=== PATIENT | female | born 1970 | race Caucasian/White ===

== ENCOUNTER 2019-01-10 10:28 | Emergency (ER) | payer OTHER ==
[2019-01-10 10:39] VITALS: BP 96/75; PULSE 85; RESP 18; TEMP 97.8
[2019-01-10] MEDS ORDERED: ONDANSETRON 4 MG/2 ML VIAL IVP STA (11:19)
[2019-01-10] MEDS ORDERED: SODIUM CHLORIDE 0.9% 1,000 ML IV ONE (11:19)
--- NOTE | 2019-01-10 11:48 | ED ---
Syncope HPI - General Chief Complaint: Syncope Stated Complaint: Syncope N/D Time Seen by Provider: 01/10/19 10:47 Source: patient, RN notes reviewed, old records reviewed Mode of arrival: ambulatory Limitations: no limitations - History of Present Illness Initial Comments: Patient is a 48-year-old female presents to return today with complaints of nausea. Patient reports that she had some x-rays x-rays yesterday for some 22st birthday. Patient states that she woke up today feeling nauseated and is concerned for having upper respiratory congestion. At this time Patient states he took his Zinc. She reports that caused her to have symptoms GI upset. Had an episode of vomiting and nausea as well as some diarrhea. Patient states that she was feeling dizzy and lightheaded after she had an episode of vomiting. She then passed out and hit her head on the floor. She had a brief loss of consciousness for 10 seconds. Patient states that she's had improvement of her symptoms upon arrival to the ER. She denies any nausea or abdomen pain. She states she has a mild headache. She denies any associated chest pain or shortness of breath. No significant past medical history. - Related Data Previous Rx's Medication Instructions Recorded Nitrofurantoin Monohyd/M-Cryst 100 mg PO Q12HR #14 cap 01/10/19 [Macrobid] Ondansetron Odt [Zofran Odt] 4 mg PO Q8HR PRN #12 tab 01/10/19 Allergies Allergy/AdvReac Type Severity Reaction Status Date / Time No Known Allergies Allergy Verified 01/10/19 10:56 Review of Systems ROS Statement: Those systems with pertinent positive or pertinent negative responses have been documented in the HPI. ROS Other: All systems not noted in ROS Statement are negative. Past Medical History Past Medical History: No Reported History History of Any Multi-Drug Resistant Organisms: None Reported Past Surgical History: Appendectomy, Cholecystectomy Past Psychological History: Anxiety Smoking Status: Never smoker Past Alcohol Use History: Occasional Past Drug Use History: None Reported General Exam - General Exam Comments Initial Comments: This is a 48-year-old female. Alert and oriented 3. No significant distress. Limitations: no limitations General appearance: alert, in no apparent distress Head exam: Present: atraumatic, normocephalic, normal inspection Eye exam: Present: normal appearance, PERRL, EOMI. Absent: scleral icterus, conjunctival injection, periorbital swelling ENT exam: Present: normal exam, mucous membranes moist Neck exam: Present: normal inspection. Absent: tenderness, meningismus, lymphadenopathy Respiratory exam: Present: normal lung sounds bilaterally. Absent: respiratory distress, wheezes, rales, rhonchi, stridor Cardiovascular Exam: Present: regular rate, normal rhythm, normal heart sounds. Absent: systolic murmur, diastolic murmur, rubs, gallop, clicks GI/Abdominal exam: Present: soft, tenderness (Suprapubic tenderness. Patient later relates that she thinks she has a urinary tract infection.), normal bowel sounds. Absent: distended, guarding, rebound, rigid Extremities exam: Present: normal inspection, full ROM, normal capillary refill. Absent: tenderness, pedal edema, joint swelling, calf tenderness Back exam: Present: normal inspection Course Vital Signs 01/10/19 10:35 Temperature 97.8 F Pulse Rate 85 Respiratory 18 Rate Blood Pressure 96/75 O2 Sat by Pulse 98 Oximetry Medical Decision Making - Medical Decision Making Patient's 48-year-old female presents emergency department today with nausea and vomiting. She later had a syncopal episode and felt dizzy and lightheaded. Upon arrival she says she feels well. She also relates that she thinks she has urinary tract infection. Discussed doing lab work, EKG and CT of the brain. Patient states she feels well and does not want to proceed with this at this time. Discussed with concern for syncopal loss consciousness 1 to do further testing. Discussed Patient will be signing out AMA. She did leave a urine sample. Patient's UA does show some significant marital signs of infection with white cells. Urine culture obtained. The symptoms we'll treat her with Macrobid. Patient has been advised that close follow-up with primary care physician. Discussed strict return parameters. All questions were answered. Patient will be leaving AMA for no eval for syncope. - Lab Data Lab Results 01/10/19 Range/Units 11:33 Urine Color Yellow Urine Appearance Cloudy H (Clear) Urine pH 5.5 (5.0-8.0) Ur Specific [place] 1.023 (1.001-1.035) Urine Protein 1+ H (Negative) Urine Glucose (UA) Negative (Negative) Urine Ketones Negative (Negative) Urine Blood Negative (Negative) Urine Nitrite Negative (Negative) Urine Bilirubin Negative (Negative) Urine Urobilinogen <2.0 (<2.0) mg/dL Ur Leukocyte Esterase Small H (Negative) Urine RBC 3 (0-5) /hpf Urine WBC 6 H (0-5) /hpf Ur Squamous Epith Cells 10 H (0-4) /hpf Urine Mucus Moderate H (None) /hpf Disposition Clinical Impression: Syncope, UTI (urinary tract infection) Disposition: Left Against Medical Advice Condition: Good Instructions (If sedation given, give patient instructions): Syncope (ED), Urinary Tract Infection in Women (ED) Additional Instructions: advised to rest, increase fluid intake. Return to the emergency department if any alarming signs or symptoms occur. Prescriptions: Nitrofurantoin Monohyd/M-Cryst [Macrobid] 100 mg PO Q12HR #14 cap Ondansetron Odt [Zofran Odt] 4 mg PO Q8HR PRN #12 tab PRN Reason: Nausea Is patient prescribed a controlled substance at d/c from ED?: No Referrals: Juan Banda MD [Primary Care Provider] - 1-2 days Time of Disposition: 12:26
[2019-01-10 12:01] LABS: Appearance,Urine Cloudy (Clear); Bilirubin,Urine Negative (Negative); Blood,Urine Negative (Negative); Color,Urine Yellow; Glucose,Urine (UA) Negative (Negative); Ketones,Urine Negative (Negative); Leukocyte Esterase,Urine Small (Negative); Mucus,Urine Moderate /hpf; Nitrite,Urine Negative (Negative); PH, Urine 5.5 (5.0-8.0); Protein,Urine 1+ (Negative); RBC,Urine 3 /hpf (0-5); Specific Gravity,Urine 1.023 (1.001-1.035); Squamous Epithelial Cell,Urine 10 /hpf (0-4); Urobilinogen,Urine <2.0 mg/dL (<2.0)
== END 2019-01-10 12:39 | disposition left against medical advice (07) ==
LOC: EC 10:28
DX: N39.0 Urinary tract infection, site not specified (principal); R55 Syncope and collapse
CPT/HCPCS: 81001; 87086; 99284